=== PATIENT | female | born 2005 | race Caucasian/White ===

== ENCOUNTER 2024-12-01 14:38 | Observation (INO) ==
--- NOTE | 2024-12-01 14:58 | Emergency Department Note ---
Impression & Plan Elevated d-dimer, Intractable back pain ED Provider Note CHIEF COMPLAINT: Flank pain, abdominal pain HISTORY OF PRESENTING ILLNESS: The patient is a pleasant, 19-year-old female who arrives to the emergency department with her mother for evaluation of severe right flank pain, with radiation into the right abdomen. Patient reports she had an ultrasound done previously, which showed a possible cyst, which was believed to be the cause. The patient states she was also diagnosed with a UTI, and prescribed antibiotics. The patient was referred to urology, for UTI, who reported the patient needed to have CT imaging performed, as they believe the patient had a kidney stone. Patient states that the urine sample that was provided while in the emergency department, was contaminated, and the antibiotic was changed. The patient was prescribed Bactrim by urology, however did not pickling operator the prescription for Bactrim. The patient states the pain is severe in the right flank, just lateral to the lower thoracic spine. She states [id number] medications have not helped. REVIEW OF SYSTEMS: See HPI for pertinent positives and pertinent negatives. ALLERGIES: See below MEDICATIONS: See below PAST MEDICAL HISTORY: See below PHYSICAL EXAM: VITALS: Vitals are noted on the nurse's note and reviewed by myself. Vital signs stable. GENERAL: 19-year-old female, in no acute distress, nondiaphoretic, well- developed well-nourished. SKIN: The skin was without rashes, erythema, edema, or bruising. HEAD: Normocephalic atraumatic. HEART: Regular rate and rhythm without murmurs gallops or rubs. LUNGS: Clear to auscultation bilaterally without wheezes, rales or rhonchi. No retractions or accessory muscle use. ABDOMEN: Positive bowel sounds x 4. Positive right CVA TTP. Right lower quadrant tenderness to palpation, no rebound tenderness or guarding. MUSCULOSKELETAL: No muscle atrophy, erythema, or edema noted. Normal gait. Strength 5/5 throughout. NEURO: Patient was alert and oriented to person place and time. No focal neurological deficits. DIFFERENTIAL DIAGNOSIS: Appendicitis, ovarian cyst, ovarian torsion, ectopic , TOA, PID, infections, diverticulitis, UTI, obstruction, mesenteric ischemia, aortic pathology, inflammatory bowel disease, renal colic, PUD, pancreatitis, biliary pathology, hernia, volvulus, constipation, as well as other pathologies. ED COURSE AND MEDICAL DECISION MAKING: HISTORY FROM INDEPENDENT HISTORIAN: Mother at bedside serving as secondary historian. MEDICATIONS GIVEN: 1 L NSS bolus, 1000 mg IV Tylenol, 15 mg IV Toradol x 2, 10 mg IV dexamethasone. INTERPRETATION OF LABS: I interpreted the labs with full lab results as below in the lab section of this note. Pertinent lab results discussed in the MDM section below. INTERPRETATION OF IMAGING: Imaging studies were interpreted by myself and read by radiology as per the imaging section of this note. MDM SUMMARY: The patient is a pleasant, 19-year-old female who arrives to the emergency department for evaluation of the above-stated complaint. Saline lock was established, lab work was obtained. CBC shows no leukocytosis, with a stable anemia. CMP shows no concerning findings. hCG qualitative negative. Urinalysis shows 1+ leukocyte esterase, negative WBCs, 3-[address] imaging of the abdomen and pelvis with IV contrast shows no sign of appendicitis, or nephrolithiasis. There is mild periportal edema within the liver, nonspecific likely due to overhydration with IV fluids, or less likely hepatitis. Patient has mild hepatomegaly, likely due to previously stated causes. There is a small left renal cyst, the patient does have slight constipation. There is also a minimal amount of free pelvic fluid, which is likely physiologic. I spoke with the patient regarding the findings. Pain control was provided, as noted above, which was unsuccessful. There is possible concern for pulmonary embolism, due to patient's use of oral contraceptives, and the location of the patient's pain. D-dimer was obtained, which was positive. CT PE study was obtained which shows no evidence of PE, and no other concerning findings. The patient's cause of symptoms are at this point unclear, and require further evaluation. I spoke with the hospitalist, regarding inability to control the patient's pain with IV pain medications, and the need for further workup to determine the cause of the patient's symptoms. Dr. Lindsay Sanchez, from the [facility] hospitalist group agreed to evaluate and accept the patient for admission. Please refer to her documentation for further patient workup and care. DIAGNOSIS: Intractable back pain, elevated D-dimer The chart was completed utilizing [employer] voice recognition software. Grammatical errors, random word insertions, pronoun errors, and incomplete sentences are an occasional consequence of this system due to software limitations, ambient noise, and hardware issues. Any formal questions or concerns about the content, text, or information contained within the body of this dictation should be directly addressed to the provider for clarification. Past Med/Surg History Problem List (Updated 12/06/24 @ 17:32 by BRISEIDA Chavez) Abnormal uterine bleeding (AUB) Elevated d-dimer (Acute) Intractable back pain (Acute) Right flank pain Urinary tract infection (Acute) Family History Mother Kidney stone Social History Smoking Status: Never smoker Second Hand Exposure: No; Do You Dip or Chew Tobacco: No; Hx Alcohol Use: No Hx Substance Use: No Preferred Language: Irish Communication Ability: Effective Bow Maker Gift Wrapping Required: No Beliefs That Will Affect Care: None Current Living Situation: Other Current Living Situation Comment: apartment with college roommates Feels Safe at Home: Yes Assistive Devices: None Allergies Allergies Allergy/AdvReac Type Severity Reaction Status Date / Time No Known Allergies Allergy Verified 11/30/24 10:40 Home Meds Home Medications Medication Instructions Recorded Confirmed fluoxetine 10 mg capsule (Prozac) 10 mg PO DAILY 11/30/24 12/01/24 fluoxetine 20 mg capsule (Prozac) 20 mg PO DAILY 11/30/24 12/01/24 levonorgestrel 0.15 mg-ethinyl See Rx Instructions PO .COMPLEX 11/30/24 12/01/24 estradiol 30 mcg tablets,3 mos pack(91) Previous Rx's Medication Instructions Recorded cyclobenzaprine 5 mg tablet 5 mg PO TID PRN muscle spasm #30 12/03/24 tabs Results & Data (ED) Vital Signs Vital Signs - 24 hr 12/01/24 14:52 12/01/24 15:20 12/01/24 17:00 Temperature 36.8 C Temperature Source Temporal Artery Scan Pulse Rate 76 Pulse Rate [Finger] 68 87 Respiratory Rate 18 16 16 Respiratory Effort / Characteristics Non-Labored Spontaneous Non-Labored Spontaneous Non-Labored Spontaneous Respiratory Depth Normal Normal Normal Respiratory Pattern Regular Regular Blood Pressure 129/82 Blood Pressure [Right Arm] 114/85 117/72 Blood Pressure Mean 97 Blood Pressure Mean [Right Arm] 94 87 Blood Pressure Position Sitting Blood Pressure Position [Right Arm] Sitting Semi-fowlers Pulse Oximetry 98 99 99 Oxygen Delivery Method Room Air Room Air Room Air Sepsis Recent Fever Within 48 Hours No Sepsis New/Unexplained Change in Mental Status No Sepsis Action Taken by Nursing No Action Required Home Medications Current Medication List: was personally reviewed by me Laboratory Data Attestation: I reviewed the patient's lab results. 12/02/24 06:08 12/02/24 06:08 Lab Results 12/01/24 12/01/24 12/01/24 Range/Units 15:20 15:33 17:00 WBC 5.10 (4.8-10.8) K/ul RBC 3.75 L (4.20-5.40) M/uL Hgb 11.6 L (12.0-16.0) g/dl Hct 33.8 L (37.0-47.0) % MCV 90.1 (80.0-100.0) fL MCH 30.9 (25.0-34.0) pg MCHC 34.3 (32.0-36.0) g/dL RDW Std Deviation 39.7 (36.4-46.3) fL RDW Coeff of Efren 12.0 (11.5-14.5) % Plt Count 271 (130-400) K/uL MPV 10.1 (9.4-12.4) fL Immature Gran % (Auto) 0.2 % Neut % (Auto) 44.7 % Lymph % (Auto) 42.9 % [place] % (Auto) 9.2 % Eos % (Auto) 2.2 % Baso % (Auto) 0.8 % Neut # (Auto) 2.28 (1.40-6.50) K/uL Lymph # (Auto) 2.19 (1.20-3.40) K/uL [place] # (Auto) 0.47 (0.11-0.59) K/uL Eos # (Auto) 0.11 (0.00-0.50) K/uL Baso # (Auto) 0.04 (0.00-0.20) K/uL Immature Gran # (Auto) 0.01 (0.01-0.20) K/uL D-Dimer Cancelled Sodium 138 (136-145) mmol/L Potassium 4.2 (3.5-5.1) mmol/L Chloride 107 (98-107) mmol/L Carbon Dioxide 26 (21-32) mmol/L Anion Gap 5 (3-11) BUN 12 (6-23) mg/dl Creatinine 0.61 (0.6-1.2) mg/dl Est Cr Clr Drug Dosing 109.4 ml/min eGFR 131.18 BUN/Creatinine Ratio 19.7 (10-20) Glucose 75 (70-99(Fasting)) mg/dl Calcium 9.3 (8.6-10.3) mg/dl Total Bilirubin 0.2 (0.2-1.0) mg/dl AST 18 (13-39) U/L ALT 10 (7-52) U/L Alkaline Phosphatase 40 (34-104) U/L Total Protein 7.1 (6.0-8.3) gm/dl Albumin 4.2 (3.4-5.0) gm/dl Globulin 2.9 (2.5-4.0) gm/dl Albumin/Globulin Ratio 1.4 (0.9-2) HCG, Qual Negative (Negative) Urine Color Yellow Urine Appearance Clear (Clear) Urine pH 6.5 (4.5-7.5) Ur Specific [place] 1.022 (1.000-1.030) Urine Protein Negative (Negative) Urine Glucose (UA) Negative (Negative) Urine Ketones Negative (Negative) Urine Blood 2+ H (Negative) Urine Nitrite Negative (Negative) Urine Bilirubin Negative (Negative) Urine Urobilinogen Negative (Negative) Ur Leukocyte Esterase 1+ H (Negative) Urine WBC (Auto) 0-5 (0-5) /hpf Urine RBC (Auto) 3-5 H (0-2) /hpf U Hyaline Cast (Auto) 0-2 (0-2) /lpf U Epithel Cells (Auto) 3-5 H (0-2) /hpf Urine Bacteria (Auto) None Seen (None Seen) Urine Comment EBV Capsid Ag IgG Ab Positive EBV Caps Ag IgG Sig Str 37.7 (< 18.0) U/mL EBV Capsid Ag IgM Ab Negative EBV Caps Ag IgM Sig Str < 10.0 (< 36.0) U/mL EBV Nuclear Antigen Ab Negative EBV Nucl Ag IgG Sig Str 6.3 (< 18.0) U/mL EBV Interpretation See Comment 12/01/24 Range/Units 17:49 WBC (4.8-10.8) K/ul RBC (4.20-5.40) M/uL Hgb (12.0-16.0) g/dl Hct (37.0-47.0) % MCV (80.0-100.0) fL MCH (25.0-34.0) pg MCHC (32.0-36.0) g/dL RDW Std Deviation (36.4-46.3) fL RDW Coeff of Efren (11.5-14.5) % Plt Count (130-400) K/uL MPV (9.4-12.4) fL Immature Gran % (Auto) % Neut % (Auto) % Lymph % (Auto) % [place] % (Auto) % Eos % (Auto) % Baso % (Auto) % Neut # (Auto) (1.40-6.50) K/uL Lymph # (Auto) (1.20-3.40) K/uL [place] # (Auto) (0.11-0.59) K/uL Eos # (Auto) (0.00-0.50) K/uL Baso # (Auto) (0.00-0.20) K/uL Immature Gran # (Auto) (0.01-0.20) K/uL D-Dimer 1150 H* Sodium (136-145) mmol/L Potassium (3.5-5.1) mmol/L Chloride (98-107) mmol/L Carbon Dioxide (21-32) mmol/L Anion Gap (3-11) BUN (6-23) mg/dl Creatinine (0.6-1.2) mg/dl Est Cr Clr Drug Dosing ml/min eGFR BUN/Creatinine Ratio (10-20) Glucose (70-99(Fasting)) mg/dl Calcium (8.6-10.3) mg/dl Total Bilirubin (0.2-1.0) mg/dl AST (13-39) U/L ALT (7-52) U/L Alkaline Phosphatase (34-104) U/L Total Protein (6.0-8.3) gm/dl Albumin (3.4-5.0) gm/dl Globulin (2.5-4.0) gm/dl Albumin/Globulin Ratio (0.9-2) HCG, Qual (Negative) Urine Color Urine Appearance (Clear) Urine pH (4.5-7.5) Ur Specific [place] (1.000-1.030) Urine Protein (Negative) Urine Glucose (UA) (Negative) Urine Ketones (Negative) Urine Blood (Negative) Urine Nitrite (Negative) Urine Bilirubin (Negative) Urine Urobilinogen (Negative) Ur Leukocyte Esterase (Negative) Urine WBC (Auto) (0-5) /hpf Urine RBC (Auto) (0-2) /hpf U Hyaline Cast (Auto) (0-2) /lpf U Epithel Cells (Auto) (0-2) /hpf Urine Bacteria (Auto) (None Seen) Urine Comment EBV Capsid Ag IgG Ab EBV Caps Ag IgG Sig Str (< 18.0) U/mL EBV Capsid Ag IgM Ab EBV Caps Ag IgM Sig Str (< 36.0) U/mL EBV Nuclear Antigen Ab EBV Nucl Ag IgG Sig Str (< 18.0) U/mL EBV Interpretation Administered Medications Discontinued Medications Acetaminophen (Acetaminophen 500 Mg Tab) 1,000 mg PO Q8H PRN PRN Reason: Pain & Pre PT Stop: 12/31/24 21:14 Last Admin: 12/02/24 22:47 Dose: 1,000 mg Documented By: ENEDELIA Dexamethasone (Dexamethasone Sod Inj 4 Mg/Ml Vial) 10 mg IV NOW STA Stop: 12/01/24 18:45 Last Admin: 12/01/24 19:05 Dose: 10 mg Documented By: RICHARD Diazepam (Diazepam 2 Mg Tablet) 2 mg PO HS PRN PRN Reason: muscle cramping Stop: 01/01/25 19:07 Last Admin: 12/02/24 20:50 Dose: 2 mg Documented By: ENEDELIA Fluoxetine HCl (Fluoxetine Hcl 10 Mg Cap) 10 mg PO DAILY MONTRELL Stop: 01/01/25 08:59 Last Admin: 12/03/24 08:22 Dose: 10 mg Documented By: Admin: 12/02/24 10:02 Dose: 10 mg Documented By: ANTONIO Fluoxetine HCl (Fluoxetine Hcl 20 Mg Cap) 20 mg PO DAILY MONTRELL Stop: 01/01/25 08:59 Last Admin: 12/03/24 08:22 Dose: 20 mg Documented By: Admin: 12/02/24 10:02 Dose: 20 mg Documented By: ANTONIO Sodium Chloride (Nss) 1,000 mls @ 999 mls/hr IV .Q1H1M ONE Stop: 12/01/24 15:59 Last Infusion: 12/01/24 16:03 Dose: Infused Documented By: dea Admin: 12/01/24 15:19 Dose: 999 mls/hr Documented By: dea Acetaminophen (Ofirmev) 1,000 mg in 100 mls @ 400 mls/hr IV NOW STA Stop: 12/01/24 16:26 Last Infusion: 12/01/24 16:52 Dose: Infused Documented By: dea Admin: 12/01/24 16:17 Dose: 400 mls/hr Documented By: HARISH Ceftriaxone Sodium (Rocephin) 2,000 mg in 50 mls @ 100 mls/hr IV Q24H MONTRELL Stop: 12/06/24 21:14 Last Infusion: 12/01/24 23:40 Dose: Infused Documented By: Admin: 12/01/24 23:07 Dose: 100 mls/hr Documented By: RADHA Ibuprofen (Ibuprofen 600 Mg Tab) 600 mg PO Q6H PRN PRN Reason: Pain & Pre PT Stop: 12/31/24 21:14 Last Admin: 12/02/24 17:48 Dose: 600 mg Documented By: Admin: 12/02/24 10:01 Dose: 600 mg Documented By: Admin: 12/02/24 03:48 Dose: 600 mg Documented By: RADHA Ioversol (Optiray 320 100ml) 90 ml IV ONCE ONE Stop: 12/01/24 16:04 Last Admin: 12/01/24 16:03 Dose: 90 ml Documented By: JAKE Ketorolac Tromethamine (Ketorolac Tromethamine 15 Mg/Ml Vial) 15 mg IV NOW ONE Stop: 12/01/24 16:13 Last Admin: 12/01/24 16:17 Dose: 15 mg Documented By: HARISH Ketorolac Tromethamine (Ketorolac Tromethamine 15 Mg/Ml Vial) 15 mg IV NOW ONE Stop: 12/01/24 18:45 Last Admin: 12/01/24 19:03 Dose: 15 mg Documented By: RICHARD Ketorolac Tromethamine (Ketorolac Tromethamine 15 Mg/Ml Vial) 15 mg IV Q6H PRN PRN Reason: Pain & Pre PT Stop: 12/06/24 21:14 Last Admin: 12/02/24 19:41 Dose: 15 mg Documented By: Admin: 12/02/24 12:43 Dose: 15 mg Documented By: Admin: 12/02/24 06:23 Dose: 15 mg Documented By: Admin: 12/01/24 23:06 Dose: 15 mg Documented By: RADHA Melatonin (Melatonin 3 Mg Tab) 3 mg PO HS PRN PRN Reason: Insomnia Stop: 12/31/24 22:24 Last Admin: 12/02/24 22:47 Dose: 3 mg Documented By: ENEDELIA Imaging Data Attestation: I personally reviewed and interpreted this imaging study as follows: Radiologist's Impression: Abdomen/Pelvis CT 12/01/24 14:59 Clinical History: Right-sided pain Technique: Axial computed tomography images were obtained of the abdomen and pelvis after the administration of intravenous contrast. No prior CT is available for comparison. Findings: The liver appears enlarged measuring 19.5 cm craniocaudal. There is no sign of cirrhosis or significant fatty infiltration. No liver mass lesion is seen. There is periportal edema within the liver. The portal vein is patent. The gallbladder appears unremarkable. No bile duct dilatation is noted. The spleen is of normal size. No focal splenic lesion is evident. The pancreas appears normal with no sign of acute or chronic pancreatitis and no mass lesion noted. The pancreatic duct is of normal caliber. The adrenal glands appear unremarkable. No definite renal or proximal ureteral calculi are seen on this contrast-enhanced study. There is no hydronephrosis or perinephric stranding. No renal mass lesion is identified. There is a 1 cm left renal cyst The aorta is of normal caliber. No abdominal adenopathy is seen. There is prominence of the gastric wall that is slightly due to the decompressed state. There is no sign of small bowel obstruction. There is constipation. There is no sign of appendicitis. No free intraperitoneal air is identified. There is a minimal amount of free pelvic fluid No distal ureteral or bladder calculi are seen. The bladder is decompressed. The iliac arteries are of normal caliber. No pelvic adenopathy is noted. The lungs bases appear clear. No fracture is identified. No focal osseous lesion is seen Impression: 1. No sign of appendicitis or nephrolithiasis 2. Mild periportal edema within the liver. This is nonspecific in nature but could be due to hepatitis or overhydration 3. Mild hepatomegaly 4. Small left renal cyst 5. Constipation 6. Minimal amount of free pelvic fluid, which may be physiologic ACT 112: Positive. There are findings on this exam that require communication between the performing entity and the patient following Patient Test Result Information Act ([place] ACT 112) guidelines. Electronically signed by Zen Varela 12-01-2024 4:24 PM Discharge Plan Visit Data Chief Complaint: Kidney Stone Stated Complaint: POSSIBLE KIDNEY STONE ED Provider: Gerry Brown ED Midlevel Provider: Johana Pyle Discharge Problem: Elevated d-dimer, Intractable back pain Patient Disposition: Admitted As Inpatient Condition: Fair Discharge Instructions Interventions: ED Discharge Assessment Last Done: 12/01/24 21:40
[2024-12-01] MEDS: SODIUM CHLORIDE 0.9% 1,000 ML IV ONE (15:19)
[2024-12-01 15:34] LABS: Hematocrit (blood only) 33.8 % (37.0-47.0); Hemoglobin 11.6 g/dl (12.0-16.0); Immature Granulocytes # (auto) 0.01 K/uL (0.01-0.20); Immature Granulocytes % (auto) 0.2 %; Mean Corpuscular Hemoglobin 30.9 pg (25.0-34.0); Mean Corpuscular Volume 90.1 fL (80.0-100.0); Platelet Count 271 K/uL (130-400); RDW Standard Deviation 39.7 fL (36.4-46.3); Red Blood Count 3.75 M/uL (4.20-5.40); White Blood Count 5.10 K/ul (4.8-10.8)
[2024-12-01 15:52] LABS: Alanine Aminotransferase 10.0 U/L (7-52); Albumin Globulin Ratio 1.4 (0.9-2); Alkaline Phosphatase 40.0 U/L (34-104); Anion Gap 5.0 (3-11); Bilirubin,Total 0.2 mg/dl (0.2-1.0); Blood Urea Nitrogen 12.0 mg/dl (6-23); Calcium 9.3 mg/dl (8.6-10.3); Carbon Dioxide 26.0 mmol/L (21-32); Chloride 107.0 mmol/L (98-107); Creatinine Clr Calc Pharmacy 109.4 ml/min; Globulin 2.9 gm/dl (2.5-4.0); Glucose 75.0 mg/dl (70-99(Fasting)); Potassium 4.2 mmol/L (3.5-5.1); Sodium 138.0 mmol/L (136-145); Total Protein 7.1 gm/dl (6.0-8.3)
[2024-12-01 15:53] LABS: Pregnancy Test, Serum Negative (Negative)
[2024-12-01 15:56] LABS: Appearance Urine Clear (Clear); Bacteria Urine Automated None Seen (None Seen); Cast Urine Automated 0-2 /lpf (0-2); Glucose Urine UA Negative (Negative); WBC Urine Automated 0-5 /hpf (0-5)
[2024-12-01] MEDS: OPTIRAY 320 100ml IV ONE (16:03)
[2024-12-01] MEDS: KETOROLAC TROMETHAMINE 15 MG/ML VIAL IV ONE ×2 (16:17→19:03)
[2024-12-01] MEDS: ACETAMINOPHEN 1,000 MG/100 ML VIAL IV STA (16:17)
--- NOTE | 2024-12-01 16:25 | CT Scan Report ---
Clinical History: Right-sided pain Technique: Axial computed tomography images were obtained of the abdomen and pelvis after the administration of intravenous contrast. No prior CT is available for comparison. Findings: The liver appears enlarged measuring 19.5 cm craniocaudal. There is no sign of cirrhosis or significant fatty infiltration. No liver mass lesion is seen. There is periportal edema within the liver. The portal vein is patent. The gallbladder appears unremarkable. No bile duct dilatation is noted. The spleen is of normal size. No focal splenic lesion is evident. The pancreas appears normal with no sign of acute or chronic pancreatitis and no mass lesion noted. The pancreatic duct is of normal caliber. The adrenal glands appear unremarkable. No definite renal or proximal ureteral calculi are seen on this contrast-enhanced study. There is no hydronephrosis or perinephric stranding. No renal mass lesion is identified. There is a 1 cm left renal cyst The aorta is of normal caliber. No abdominal adenopathy is seen. There is prominence of the gastric wall that is slightly due to the decompressed state. There is no sign of small bowel obstruction. There is constipation. There is no sign of appendicitis. No free intraperitoneal air is identified. There is a minimal amount of free pelvic fluid No distal ureteral or bladder calculi are seen. The bladder is decompressed. The iliac arteries are of normal caliber. No pelvic adenopathy is noted. The lungs bases appear clear. No fracture is identified. No focal osseous lesion is seen Impression: 1. No sign of appendicitis or nephrolithiasis 2. Mild periportal edema within the liver. This is nonspecific in nature but could be due to hepatitis or overhydration 3. Mild hepatomegaly 4. Small left renal cyst 5. Constipation 6. Minimal amount of free pelvic fluid, which may be physiologic ACT 112: Positive. There are findings on this exam that require communication between the performing entity and the patient following Patient Test Result Information Act ([place] ACT 112) guidelines. Electronically signed by Zen Varela 12-01-2024 4:24 PM
[2024-12-01] MEDS: DEXAMETHASONE SOD INJ 4 MG/ML VIAL IV STA (19:05)
--- NOTE | 2024-12-01 19:13 | CT Scan Report ---
CT pulmonary angiogram with IV contrast History: Chest pain COMPARISON: None TECHNIQUE: CT angiography of the chest was performed without IV contrast followed by IV contrast, including 3D post processing CTA image reconstruction. Dose reduction techniques were achieved by using automatic exposure control and/or adjustment of mA and/or kV according to patient size and/or use of iterative reconstruction technique. FINDINGS: Diagnostic quality: Adequate There is no evidence for pulmonary embolism. The heart is not enlarged. There is no pericardial effusion. There are no abnormally enlarged hilar or mediastinal lymph nodes. The central tracheobronchial tree is clear. The lungs are clear. There is no pleural effusion. Limited visualized upper abdomen. No destructive osseous changes are seen. IMPRESSION: No evidence for pulmonary embolism. Electronically signed by Nahid Silveira 12-01-2024 7:13 PM
--- NOTE | 2024-12-01 21:04 | History & Physical Report ---
Date of Service December 01, 2024 Assessment & Plan (1) Intractable back pain: (2) Urinary tract infection: (3) Elevated d-dimer: Plan 19-year-old female PMHx chronic sinusitis s/p surgical intervention and recently diagnosed UTI presenting for ongoing and worsening back pain starting 6 days [employer]. Her clinical picture is not overall clear. She had a sudden onset of the back pain when walking, which was mainly localized above the R flank, then it has since radiated to the L side. Evaluation does reveal persistent UTI in which she will be given IV abx for, but imaging does not yet reveal alternative etiology aside from MSK. Ddimer is elevated to 1150. No PE or DVT identified. #Intractable back pain Ongoing x ~ 6 days, without known injury or trauma. No neurological symptoms. Initially thought to be 2/2 UTI with possible pyelonephritis. Was started on Cefdinir for such, adjusted to Bactrim by urology. Worsening pain in mid-back, with midline point tenderness ~ T10. Also with paraspinal tenderness. Concerns for alternative etiology from renal, also in setting of elevated D-dimer. Opted for further thoracic/lumbar spine imaging, both without acute findings. Pursued PE workup given elevated D-dimer, location of pain, and episode of SOB but this too was negative. At present, unclear etiology of back pain aside from MSK. Admission for pain control and further evaluation of worsening back pain. - CBC without leukocytosis or leukopenia, H/H 11.6/33.8; CMP unremarkable - CBC am - UA indicative of infection; pending cx - EBV + CMV pending given mild periportal edema of liver (LFTs WNL) - CTAP no appendicitis or nephrolithiasis, mild periportal edema within the liver (hepatitis vs overhydration), mild hepatomegaly, small L renal cyst, constipation, minimal free pelvic fluid - Chest CTA negative for PE - Thoracic + Lumbar spine CT without evidence of acute spine pathology - Zofran prn N/V - Acetaminophen + IBU prn pain, ketorolac prn severe pain - Encourage prn bowel regimen - Consider PT/OT outpatient #UTI Known UTI, was initially treated with Cefdinir then switched to Bactrim by urology. Noticing blood in urine. No history of pseudomonas. Of note, also with breakthrough menstrual bleeding. - CBC without leukocytosis; CMP unremarkable - UA indicative of infection; pending cx - Preg negative - CTAP without evidence of pyelonephritis or nephrolithiasis - Ceftriaxone 2g IV #Elevated D-dimer Brief episode of SOB the day of arrival, self limiting and no evidence of hypoxia. On OCP. - Ddimer 1150 - Chest CTA negative for PE - Venous Dopplers BLE negative for DVT - Consider hematology consult Dispo: Obs, med/sx VTE Prophylaxis: Deferred - encourage ambulation -- if unable, should consider chemical prophylaxis This document was dictated utilizing TEEspy. Please excuse any grammatical errors that may be secondary to use of this software. Admission and Anticipated Discharge Date Admission Date: 12/01/2024 History of Present Illness Chief Complaint: Back pain Primary Care Provider: 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 She immediately felt nauseous and "spaced out". Her mother is in the room and helps to provide history. States that her daughter called her almost immediately via [employer] and that she knew that the patient had been in significant pain because she appeared pale. The patient states that she just felt disoriented when this occurred. She did go to her class but the pain continued. She was seen in the ED on 11/25/2024 for this pain, ultimately being diagnosed with a UTI and sent home on oral cefdinir. Her pelvic, renal, and transvaginal ultrasound at that time only revealed mild free fluid in the pelvis that was nonspecific. She followed up with urology who received a new urine sample and adjusted her antibiotics to Bactrim, recommending CT of the abdomen and pelvis. She picked up the Bactrim the day of arrival but has been unable to yet start this antibiotic. Given the ongoing and worsening pain, as well as being unable to have an outpatient CT scheduled for the next few weeks, the patient came to the ED for evaluation. She states that the pain, at its worst, is at present and is rated a 8-9/10 on the pain scale. It is a sharp and achy pain. Initially, the pain was on the R side, below the base of the scapula with some radiation to her flank. However, on the day of arrival, the pain seemed to have radiated to the center of her back, and more localized to the L side. She still has R sided discomfort, but it is more so on the L side now. She states she has also had abdominal cramping that feels like menstrual cramps. 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 She notes that her discomfort is worse with walking. She denies injury, falls, or any factors that may have triggered worsening pain. She has been utilizing IBU and acetaminophen around the clock with minimal pain relief. Also using heating pad. Reports that she has noticed she is more aware of odors, and it has caused her to gag. Some constipation at baseline. Denies vaginal odor, discharge, or pain with intercourse. At present, her pain is just below her scapula, in the center of her back with more emphasis on the L side. She does notice blood in her urine. Did have a limited episode of SOB the day of arrival. Denies CP, palpitations, vomiting/diarrhea, F/C, URI symptoms, numbness/tingling, weakness, syncope, or falls. ED evaluation reveals CBC without leukocytosis or leukopenia, H/H 11.6/33.8; Ddimer 1150; CMP unremarkable; negative; UA still indicative of infection; CTAP no appendicitis or nephrolithiasis, mild periportal edema within the liver (hepatitis vs overhydration), mild hepatomegaly, small L renal cyst, constipation, minimal free pelvic fluid; chest CTA no evidence for PE.; Provided with 1L NSS, Ketorolac 15mg IV x 2, Dexamethasone 10mg IV, and Acetaminophen 1g IV in ED. Please see Dr. Sanchez's attestation for adjustments/additions to treatment plan. Allergies Allergy/AdvReac Type Severity Reaction Status Date / Time No Known Allergies Allergy Verified 11/30/24 10:40 Home Medications Medication Instructions Recorded Confirmed Type fluoxetine 10 mg capsule (Prozac) 10 mg PO DAILY 11/30/24 12/01/24 History fluoxetine 20 mg capsule (Prozac) 20 mg PO DAILY 11/30/24 12/01/24 History levonorgestrel 0.15 mg-ethinyl See Rx Instructions PO .COMPLEX 11/30/24 12/01/24 History estradiol 30 mcg tablets,3 mos pack(91) sulfamethoxazole 800 1 tab PO BID 7 days #14 tabs 11/30/24 12/01/24 Rx mg-trimethoprim 160 mg tablet (Bactrim DS) Past Med/Surg History Problem List (Updated 12/01/24 @ 23:15 by Rachele Riley PA-C) Elevated d-dimer Intractable back pain Right flank pain Urinary tract infection (Acute) Family History Mother Kidney stone Social History Smoking Status: Never smoker Second Hand Exposure: No; Do You Dip or Chew Tobacco: No; Tobacco Cessation Education Requested by Patient: No Hx Alcohol Use: No Hx Substance Use: No Preferred Language: Mosotho Communication Ability: Effective Academic Support Assistant Required: No Beliefs That Will Affect Care: None Current Living Situation: Other Current Living Situation Comment: apartment with college roommates Other Information That Helps Us Care for You: No Feels Safe at Home: Yes Safety Concerns: Feels Safe At This Time Assistive Devices: None Review of Systems Review of Systems: All systems reviewed & are unremarkable except as noted in Subjective Physical Exam Physical Exam: General: No acute distress, appears uncomfortable Skin: Warm and dry Head: Normocephalic, atraumatic Eyes: PERRL, conjunctivae clear, sclera non-icteric ENT: External ear and ear canal without swelling; nose atraumatic; good dentition, tongue normal appearance, pharynx normal Neck: Supple, no LAD Cardio: RRR, no M/G/R, S1 and S2 normal Resp: No respiratory distress, Lungs CTA in all lobes bilaterally, no wheezes, rales, or rhonchi Abdomen: Soft, symmetric, nontender; No masses or hepatosplenomegaly; Bowel sounds normoactive; mild CVA tenderness R side MSK: No deformities; pulses palpable and equal; no edema; paraspinal tenderness to palpation at thoracic area, with midline tenderness to palpation ~ T10; no step off deformity; no tenderness to palpation BLE (thighs/hips); no hip instability; no tenderness over pubic symphysis. Neuro: Awake, alert; Sensation intact bilaterally; CN grossly intact; no neurological deficits Psych: Appropriate mood and affect; good judgement and insight. Mother is present in room at time of visit. Results & Data Results & Data Vital Signs (Past 12 Hours) Vital Signs Temp Pulse Pulse Resp BP BP Pulse Ox 12/01/24 19:10 73 16 100/69 99 12/01/24 17:00 87 16 117/72 99 12/01/24 15:20 68 16 114/85 99 12/01/24 14:52 36.8 C 76 18 129/82 98 O2 Del Method 12/01/24 19:10 Room Air 12/01/24 17:00 Room Air 12/01/24 15:20 Room Air 12/01/24 14:52 Room Air Laboratory Results 12/01/24 12/01/24 12/01/24 17:49 17:00 15:33 WBC RBC Hgb Hct MCV MCH MCHC RDW Std Deviation RDW Coeff of Efren Plt Count MPV Immature Gran % (Auto) Neut % (Auto) Lymph % (Auto) [place] % (Auto) Eos % (Auto) Baso % (Auto) Neut # (Auto) Lymph # (Auto) [place] # (Auto) Eos # (Auto) Baso # (Auto) Immature Gran # (Auto) D-Dimer 1150 H* Cancelled Sodium Potassium Chloride Carbon Dioxide Anion Gap BUN Creatinine Est Cr Clr Drug Dosing eGFR BUN/Creatinine Ratio Glucose Calcium Total Bilirubin AST ALT Alkaline Phosphatase Total Protein Albumin Globulin Albumin/Globulin Ratio HCG, Qual Urine Color Yellow Urine Appearance Clear Urine pH 6.5 Ur Specific [place] 1.022 Urine Protein Negative Urine Glucose (UA) Negative Urine Ketones Negative Urine Blood 2+ H Urine Nitrite Negative Urine Bilirubin Negative Urine Urobilinogen Negative Ur Leukocyte Esterase 1+ H Urine WBC (Auto) 0-5 Urine RBC (Auto) 3-5 H U Hyaline Cast (Auto) 0-2 U Epithel Cells (Auto) 3-5 H Urine Bacteria (Auto) None Seen Urine Comment 12/01/24 15:20 WBC 5.10 RBC 3.75 L Hgb 11.6 L Hct 33.8 L MCV 90.1 MCH 30.9 MCHC 34.3 RDW Std Deviation 39.7 RDW Coeff of Efren 12.0 Plt Count 271 MPV 10.1 Immature Gran % (Auto) 0.2 Neut % (Auto) 44.7 Lymph % (Auto) 42.9 [place] % (Auto) 9.2 Eos % (Auto) 2.2 Baso % (Auto) 0.8 Neut # (Auto) 2.28 Lymph # (Auto) 2.19 [place] # (Auto) 0.47 Eos # (Auto) 0.11 Baso # (Auto) 0.04 Immature Gran # (Auto) 0.01 D-Dimer Sodium 138 Potassium 4.2 Chloride 107 Carbon Dioxide 26 Anion Gap 5 BUN 12 Creatinine 0.61 Est Cr Clr Drug Dosing 109.4 eGFR 131.18 BUN/Creatinine Ratio 19.7 Glucose 75 Calcium 9.3 Total Bilirubin 0.2 AST 18 ALT 10 Alkaline Phosphatase 40 Total Protein 7.1 Albumin 4.2 Globulin 2.9 Albumin/Globulin Ratio 1.4 HCG, Qual Negative Urine Color Urine Appearance Urine pH Ur Specific [place] Urine Protein Urine Glucose (UA) Urine Ketones Urine Blood Urine Nitrite Urine Bilirubin Urine Urobilinogen Ur Leukocyte Esterase Urine WBC (Auto) Urine RBC (Auto) U Hyaline Cast (Auto) U Epithel Cells (Auto) Urine Bacteria (Auto) Urine Comment Diagnostic Findings Abdomen/Pelvis CT 12/01/24 14:59 Clinical History: Right-sided pain Technique: Axial computed tomography images were obtained of the abdomen and pelvis after the administration of intravenous contrast. No prior CT is available for comparison. Findings: The liver appears enlarged measuring 19.5 cm craniocaudal. There is no sign of cirrhosis or significant fatty infiltration. No liver mass lesion is seen. There is periportal edema within the liver. The portal vein is patent. The gallbladder appears unremarkable. No bile duct dilatation is noted. The spleen is of normal size. No focal splenic lesion is evident. The pancreas appears normal with no sign of acute or chronic pancreatitis and no mass lesion noted. The pancreatic duct is of normal caliber. The adrenal glands appear unremarkable. No definite renal or proximal ureteral calculi are seen on this contrast-enhanced study. There is no hydronephrosis or perinephric stranding. No renal mass lesion is identified. There is a 1 cm left renal cyst The aorta is of normal caliber. No abdominal adenopathy is seen. There is prominence of the gastric wall that is slightly due to the decompressed state. There is no sign of small bowel obstruction. There is constipation. There is no sign of appendicitis. No free intraperitoneal air is identified. There is a minimal amount of free pelvic fluid No distal ureteral or bladder calculi are seen. The bladder is decompressed. The iliac arteries are of normal caliber. No pelvic adenopathy is noted. The lungs bases appear clear. No fracture is identified. No focal osseous lesion is seen Impression: 1. No sign of appendicitis or nephrolithiasis 2. Mild periportal edema within the liver. This is nonspecific in nature but could be due to hepatitis or overhydration 3. Mild hepatomegaly 4. Small left renal cyst 5. Constipation 6. Minimal amount of free pelvic fluid, which may be physiologic ACT 112: Positive. There are findings on this exam that require communication between the performing entity and the patient following Patient Test Result Information Act ([place] ACT 112) guidelines. Electronically signed by Zen Varela 12-01-2024 4:24 PM Chest CTA 12/01/24 18:41 CT pulmonary angiogram with IV contrast History: Chest pain COMPARISON: None TECHNIQUE: CT angiography of the chest was performed without IV contrast followed by IV contrast, including 3D post processing CTA image reconstruction. Dose reduction techniques were achieved by using automatic exposure control and/or adjustment of mA and/or kV according to patient size and/or use of iterative reconstruction technique. FINDINGS: Diagnostic quality: Adequate There is no evidence for pulmonary embolism. The heart is not enlarged. There is no pericardial effusion. There are no abnormally enlarged hilar or mediastinal lymph nodes. The central tracheobronchial tree is clear. The lungs are clear. There is no pleural effusion. Limited visualized upper abdomen. No destructive osseous changes are seen. IMPRESSION: No evidence for pulmonary embolism. Electronically signed by Nahid Silveira 12-01-2024 7:13 PM Medications Administered 1L NSS Ketorolac 15mg IV x 2 Dexamethasone 10mg IV Acetaminophen 1g IV Code Status & VTE Plan Code Status Full VTE Prophylaxis Plan VTE Prophylaxis will be ordered: Yes Supervising Physician Co-Signing Physician Notes Patient seen and examined, chart reviewed, case discussed with LIANE Riley and I agree with the assessment and plan as above PG Care Time/CCT Total # of Minutes Spent Total Time Spent with Patient: Total time spent is greater than 50% in coordination of care (as documented) at patient's floor/unit and/or counseling patient: Coding Level of Care Code 45548 INT INP/OBS CARE 3/75MIN Diagnoses Intractable back pain M54.9 Urinary tract infection N39.0; R31.9 Hematuria presence: with hematuria Urinary tract infection type: site unspecified Elevated d-dimer R79.89 (2) Urinary tract infection Hematuria presence: with hematuria Urinary tract infection type: site unspecified Qualified Code(s): N39.0 - Urinary tract infection, site not specified; R31.9 - Hematuria, unspecified
[2024-12-01 22:03] LABS: EBV Nuclear Antigen IgG Ab Negative; EBV Nuclear Antigen IgG Quant 6.3 U/mL (< 18.0)
[2024-12-01 22:04] LABS: EBV IgG Quant 37.7 U/mL (< 18.0); EBV IgM Quant < 10.0 U/mL (< 36.0)
[2024-12-01] MEDS ORDERED: MAGNESIUM HYDROXIDE SUSP 30 ML UDC PO PRN (22:25)
[2024-12-01] MEDS ORDERED: ONDANSETRON INJ 2 MG/ML 2 ML VIAL IV PRN (22:25)
[2024-12-01] MEDS ORDERED: POLYETHYLENE (MIRALAX) 17 GM PACK PO PRN (22:25)
--- NOTE | 2024-12-01 22:52 | CT Scan Report ---
Exam(s): CT T SPINE IV Amt: 115 ml optiray 320 EXAM: CT Thoracic Spine With Intravenous Contrast CLINICAL HISTORY: Reason for exam: Point tenderness palp. TECHNIQUE: Axial computed tomography images of the thoracic spine with intravenous contrast. CTDI is 11.87 mGy and DLP is 5.94 mGy-cm. Automated exposure control was utilized for the study. A dose lowering technique was utilized adhering to the principles of ALARA. CONTRAST: Patient received 115 ml optiray 320 of IV contrast COMPARISON: No relevant prior studies available. FINDINGS: Vertebrae: There is a mild dextroscoliosis and thoracic kyphosis. No acute fracture. Discs/spinal canal/neural foramina: No acute findings. No spinal canal stenosis. Soft tissues: Unremarkable. IMPRESSION: No evidence of acute thoracic spine pathology. Electronically signed by: Hailee Mcfarlane MD 12/01/24 22:51 PM
--- NOTE | 2024-12-01 22:52 | Ultrasound Report ---
Exam(s): US VENOUS BILATERAL LOWER EXTREMITIES EXAM: US Duplex Bilateral Lower Extremities Veins CLINICAL HISTORY: Reason for exam: ddimer. TECHNIQUE: Real-time duplex ultrasound scan of the bilateral lower extremity veins integrating B-mode two-dimensional vascular structure, Doppler spectral analysis, color flow Doppler imaging and compression. COMPARISON: No relevant prior studies available. FINDINGS: Right deep veins: Unremarkable. The visualized deep veins of the right lower extremity are compressible with color flow. No visualized thrombus. Right superficial veins: Unremarkable. Left deep veins: Unremarkable. The visualized deep veins of the left lower extremity are compressible with color flow. No visualized thrombus. Left superficial veins: Unremarkable. No visualized thrombus in the GSV. Soft tissues: No acute findings. IMPRESSION: No DVT within the bilateral lower extremities. Electronically signed by: Chacho Weinstein MD 12/01/24 22:51 PM
--- NOTE | 2024-12-01 23:05 | CT Scan Report ---
Exam(s): CT L SPINE With Contrast IV Amt: 90 ml optiray 320 EXAM: CT Lumbar Spine With Intravenous Contrast CLINICAL HISTORY: Reason for exam: Point tenderness palp. TECHNIQUE: Axial computed tomography images of the lumbar spine with intravenous contrast. CTDI is 7.97 mGy and DLP is 283.36 mGy-cm. Automated exposure control was utilized for the study. A dose lowering technique was utilized adhering to the principles of ALARA. CONTRAST: Patient received 90 ml optiray 320 of IV contrast COMPARISON: No relevant prior studies available. FINDINGS: Vertebrae: Mild levoscoliosis with a normal lumbar lordosis.. No acute fracture. Discs/spinal canal/neural foramina: No acute findings. No spinal canal stenosis. Soft tissues: Unremarkable. IMPRESSION: No evidence of acute lumbar spine pathology. Electronically signed by: Hailee Mcfarlane MD 12/01/24 23:04 PM
[2024-12-01] MEDS: KETOROLAC TROMETHAMINE 15 MG/ML VIAL IV PRN (23:06)
[2024-12-01] MEDS: cefTRIAXone SODIUM 2,000 MG/50 ML BAG IV SCH (23:07)
[2024-12-02] MEDS: IBUPROFEN 600 MG TAB PO PRN (03:48)
[2024-12-02 06:54] LABS: Hematocrit (blood only) 34.6 % (37.0-47.0); Hemoglobin 11.7 g/dl (12.0-16.0); Mean Corpuscular Hemoglobin 30.2 pg (25.0-34.0); Mean Corpuscular Volume 89.2 fL (80.0-100.0); Platelet Count 282 K/uL (130-400); RDW Standard Deviation 37.8 fL (36.4-46.3); Red Blood Count 3.88 M/uL (4.20-5.40); White Blood Count 6.87 K/ul (4.8-10.8)
[2024-12-02 07:30] LABS: Anion Gap 7.0 (3-11); Blood Urea Nitrogen 13.0 mg/dl (6-23); Calcium 9.1 mg/dl (8.6-10.3); Carbon Dioxide 22.0 mmol/L (21-32); Chloride 106.0 mmol/L (98-107); Creatinine Clr Calc Pharmacy 131.3 ml/min; Glucose 124.0 mg/dl (70-99(Fasting)); Potassium 3.9 mmol/L (3.5-5.1); Sodium 135.0 mmol/L (136-145)
--- NOTE | 2024-12-02 14:29 | Hospitalist Progress Note ---
Date of Service December 02, 2024 Assessment & Plan (1) Intractable back pain: (2) Urinary tract infection: (3) Elevated d-dimer: Plan 19-year-old female PMHx chronic sinusitis s/p surgical intervention and recently diagnosed UTI presenting for ongoing and worsening back pain starting 6 days [employer]. #Intractable back pain Appears to be musculoskeletal on exam with thoracic back spasm, will trial diazepam 2mg PO HS as needed tonight to see if we can break the cycle Although CT done with IV contrast there is no contrast in the ureters, no evidence for kidney stones and her history really doesn't fit this. #Abnormal menstrual periods I suspect this may be what is driving her back spasms after switching to three month cycles and having what appears to be a breakthrough period Will ask DERRICK BOAT RUNNER to see her for advice regarding what to do with her control at this time #UTI Ruled out - no good evidence for this with lactobacillus now on urine culture Antibiotics discontinued Dispo: Obs, med/sx VTE Prophylaxis: low risk, encourage ambulation Admission and Anticipated Discharge Date Admission Date: December 01, 2024 Subjective Ongoing thoracic back pain LMP last week of September 10-. Right after that started new control regimen but pills the same on September 13 went to having three month cycles for the first time. With her thoracic back pain she hasn't had a period but more than spotting. She made the switch due to periods lasting 8-9 days so was to much every month to have a period Physical Exam Constitutional: WD/WN, vitals as above Respiratory: normal respiratory effort, lungs clear to auscultation Cardiovascular: RRR, no murmur, no edema Gastrointestinal (Abdomen): normal bowel sounds, soft, nontender, no hepatosplenomegaly Musculoskeletal: Pain on palpation of tight right > left paraspinal muscles around ribs 10-12 Skin: no rashes, warm and dry Genitourinary: no CVA tenderness Results & Data Results & Data Vital Signs (Past 12 Hours) Vital Signs Temp Pulse Resp BP Pulse Ox O2 Del Method 12/02/24 07:31 37.0 C 70 16 95/60 L 97 Room Air PG Care Time/CCT Total # of Minutes Spent Total Time Spent with Patient: Total time spent is greater than 50% in coordination of care (as documented) at patient's floor/unit and/or counseling patient: Coding Level of Care Code 60666 SUB INP/OBS CARE MIN Diagnoses Intractable back pain M54.9 Urinary tract infection N39.0; R31.9 Hematuria presence: with hematuria Urinary tract infection type: site unspecified Elevated d-dimer R79.89 (2) Urinary tract infection Hematuria presence: with hematuria Urinary tract infection type: site unspecified Qualified Code(s): N39.0 - Urinary tract infection, site not specified; R31.9 - Hematuria, unspecified
[2024-12-02 15:29] VITALS: O2SAT 98
--- NOTE | 2024-12-02 22:14 | OB/GYN Consultation ---
Date of Consultation December 02, 2024 Assessment & Plan (1) Abnormal uterine bleeding (AUB): Plan Patient to take the control pill that she missed today. 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 Thank you and we will follow-up as needed. History of Present Illness Reason for Consultation: abdominal pain and back pain. vaginal bleeding. Requesting Physician: Dr. Sanchez Attending Physician: Сергей Monterroso MD History of Present Illness 19-year-old female G0, P0 on control pills with menarche at age 12 presents with acute onset of pain on Thursday was seen last week in the ER and discharged with a diagnosis of UTI however she has no symptoms of UTI she presented again with abdominal pain and back pain she recently started control pills on a 90-day cycle and she is currently on the third month with some spotting noted. She states that she has not gone through that many pads since being here in the hospital. No passage of clots. She did miss today's dose of control pill. Allergies Allergy/AdvReac Type Severity Reaction Status Date / Time No Known Allergies Allergy Verified 11/30/24 10:40 Home Medications Medication Instructions Recorded Confirmed Type fluoxetine 10 mg capsule (Prozac) 10 mg PO DAILY 11/30/24 12/01/24 History fluoxetine 20 mg capsule (Prozac) 20 mg PO DAILY 11/30/24 12/01/24 History levonorgestrel 0.15 mg-ethinyl See Rx Instructions PO .COMPLEX 11/30/24 12/01/24 History estradiol 30 mcg tablets,3 mos pack(91) sulfamethoxazole 800 1 tab PO BID 7 days #14 tabs 11/30/24 12/01/24 Rx mg-trimethoprim 160 mg tablet (Bactrim DS) Patient History Family History Mother Kidney stone Social History Smoking Status: Never smoker Second Hand Exposure: No; Do You Dip or Chew Tobacco: No; Tobacco Cessation Education Requested by Patient: No Hx Alcohol Use: No Hx Substance Use: No Preferred Language: Maori Communication Ability: Effective Sheet Writer Required: No Beliefs That Will Affect Care: None Current Living Situation: Other Current Living Situation Comment: apartment with college roommates Other Information That Helps Us Care for You: No Feels Safe at Home: Yes Safety Concerns: Feels Safe At This Time Assistive Devices: None Physical Exam Constitutional: WD/WN, vitals as above Eyes: PERRL, conjunctivae normal, anicteric sclerae Respiratory: normal respiratory effort Gastrointestinal (Abdomen): Inspection/Auscultation: abdomen normal to inspection no rebound or guarding Musculoskeletal: no cyanosis or clubbing, extremities motor strength 5/5 Skin: no rashes, warm and dry Neurologic: patellar DTR's 2+ bilat, sensation intact Psychiatric: A+Ox3, euthymic affect Results & Data Vital Signs (Past 12 Hours) Vital Signs Temp Pulse Resp BP Pulse Ox O2 Del Method 12/02/24 15:28 36.9 C 91 H 16 138/79 98 Room Air Laboratory Results 12/01/24 12/01/24 12/01/24 15:20 15:33 17:00 WBC 5.10 RBC 3.75 L Hgb 11.6 L Hct 33.8 L MCV 90.1 MCH 30.9 MCHC 34.3 RDW Std Deviation 39.7 RDW Coeff of Efren 12.0 Plt Count 271 MPV 10.1 Immature Gran % (Auto) 0.2 Neut % (Auto) 44.7 Lymph % (Auto) 42.9 [place] % (Auto) 9.2 Eos % (Auto) 2.2 Baso % (Auto) 0.8 Neut # (Auto) 2.28 Lymph # (Auto) 2.19 [place] # (Auto) 0.47 Eos # (Auto) 0.11 Baso # (Auto) 0.04 Immature Gran # (Auto) 0.01 D-Dimer Cancelled Sodium 138 Potassium 4.2 Chloride 107 Carbon Dioxide 26 Anion Gap 5 BUN 12 Creatinine 0.61 Est Cr Clr Drug Dosing 109.4 eGFR 131.18 BUN/Creatinine Ratio 19.7 Glucose 75 Calcium 9.3 Total Bilirubin 0.2 AST 18 ALT 10 Alkaline Phosphatase 40 Total Protein 7.1 Albumin 4.2 Globulin 2.9 Albumin/Globulin Ratio 1.4 HCG, Qual Negative Urine Color Yellow Urine Appearance Clear Urine pH 6.5 Ur Specific [place] 1.022 Urine Protein Negative Urine Glucose (UA) Negative Urine Ketones Negative Urine Blood 2+ H Urine Nitrite Negative Urine Bilirubin Negative Urine Urobilinogen Negative Ur Leukocyte Esterase 1+ H Urine WBC (Auto) 0-5 Urine RBC (Auto) 3-5 H U Hyaline Cast (Auto) 0-2 U Epithel Cells (Auto) 3-5 H Urine Bacteria (Auto) None Seen Urine Comment EBV Capsid Ag IgG Ab Positive EBV Caps Ag IgG Sig Str 37.7 EBV Capsid Ag IgM Ab Negative EBV Caps Ag IgM Sig Str < 10.0 EBV Nuclear Antigen Ab Negative EBV Nucl Ag IgG Sig Str 6.3 EBV Interpretation See Comment 12/01/24 12/02/24 17:49 06:08 WBC 6.87 RBC 3.88 L Hgb 11.7 L Hct 34.6 L MCV 89.2 MCH 30.2 MCHC 33.8 RDW Std Deviation 37.8 RDW Coeff of Efren 11.8 Plt Count 282 MPV 10.1 Immature Gran % (Auto) Neut % (Auto) Lymph % (Auto) [place] % (Auto) Eos % (Auto) Baso % (Auto) Neut # (Auto) Lymph # (Auto) [place] # (Auto) Eos # (Auto) Baso # (Auto) Immature Gran # (Auto) D-Dimer 1150 H* Sodium 135 L Potassium 3.9 Chloride 106 Carbon Dioxide 22 Anion Gap 7 BUN 13 Creatinine 0.59 L Est Cr Clr Drug Dosing 131.3 eGFR 132.23 BUN/Creatinine Ratio 22.0 H Glucose 124 H Calcium 9.1 Total Bilirubin AST ALT Alkaline Phosphatase Total Protein Albumin Globulin Albumin/Globulin Ratio HCG, Qual Urine Color Urine Appearance Urine pH Ur Specific [place] Urine Protein Urine Glucose (UA) Urine Ketones Urine Blood Urine Nitrite Urine Bilirubin Urine Urobilinogen Ur Leukocyte Esterase Urine WBC (Auto) Urine RBC (Auto) U Hyaline Cast (Auto) U Epithel Cells (Auto) Urine Bacteria (Auto) Urine Comment EBV Capsid Ag IgG Ab EBV Caps Ag IgG Sig Str EBV Capsid Ag IgM Ab EBV Caps Ag IgM Sig Str EBV Nuclear Antigen Ab EBV Nucl Ag IgG Sig Str EBV Interpretation Diagnostic Findings CT negative for any pulmonary embolism. Uterus and ovary wnl. Dopplers negative for DVT
[2024-12-02] MEDS: MELATONIN 3 MG TAB PO PRN (22:47)
[2024-12-02] MEDS: ACETAMINOPHEN 500 MG TAB PO PRN (22:47)
[2024-12-03 07:45] VITALS: BP 101/64; PULSE 74; RESP 16; TEMP 99
--- NOTE | 2024-12-03 12:51 | Discharge Summary ---
Discharge Summary Date of Service December 03, 2024 Principal Dx & Hospital Course #1 = Principal Diagnosis (1) Intractable back pain: (2) Urinary tract infection: (3) Elevated d-dimer: Keri Mcdonald is a 19 year old female observed at [facility] from December 01 to 2024 due to back pain and abnormal uterine bleeding. Urine tract infection was ruled out as only lactobacillus growing in culture. B ack pain most consistent with thoracic muscle spasm with excellent relief with diazepam 2mg PO overnight. She will be prescribed Flexeril to use as needed on discharge. Suspect her muscle spasms may be related to abnormal uterine bleeding as this is the first time you have gone through the three month cycle. She was seen by gynecology and recommended staying on your current schedule of control and following up as an outpatient. Recommended conservative measures such as yoga for stretching, acupuncture, massage, heating pads for her back. For pain continue with acetaminophen 1st line and ibuprofen 2nd line for pain as needed. Notes For Next Care Provider Follow up with APPLICATION DESIGNER or family physician regarding control Follow up primary care physician for back pain There were non-specific findings on CT that should be followed up: CT abdomen/pelvis showed "mild periportal edema within the liver. This is nonspecific in nature but could be due to hepatitis or overhydration" and "mild hepatomegaly". EBV testing indicates previous infection but the time since primary infection cannot be determined and if not improving consider repeating this in 2-3 weeks however I have low suspicion this is causing her symptoms as CBC, LFTs normal and there is no specific treatment for this. CMV testing is still pending on discharge. If she is not improving consider hepatitis, HIV testing and follow up liver ultrasound. 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 She immediately felt nauseous and "spaced out". Her mother is in the room and helps to provide history. States that her daughter called her almost immediately via FaceTime and that she knew that the patient had been in significant pain because she appeared pale. The patient states that she just felt disoriented when this occurred. She did go to her class but the pain continued. She was seen in the ED on 11/25/2024 for this pain, ultimately being diagnosed with a UTI and sent home on oral cefdinir. Her pelvic, renal, and transvaginal ultrasound at that time only revealed mild free fluid in the pelvis that was nonspecific. She followed up with urology who received a new urine sample and adjusted her antibiotics to Bactrim, recommending CT of the abdomen and pelvis. She picked up the Bactrim the day of arrival but has been unable to yet start this antibiotic. Given the ongoing and worsening pain, as well as being unable to have an outpatient CT scheduled for the next few weeks, the patient came to the ED for evaluation. She states that the pain, at its worst, is at present and is rated a 8-9/10 on the pain scale. It is a sharp and achy pain. Initially, the pain was on the R side, below the base of the scapula with some radiation to her flank. However, on the day of arrival, the pain seemed to have radiated to the center of her back, and more localized to the L side. She still has R sided discomfort, but it is more so on the L side now. She states she has also had abdominal cramping that feels like menstrual cramps. She is on OCP, reporting that her period is due in the middle of December but she has been spotting since ~ 6 days HOT MILL WORKER. She notes that her discomfort is worse with walking. She denies injury, falls, or any factors that may have triggered worsening pain. She has been utilizing IBU and acetaminophen around the clock with minimal pain relief. Also using heating pad. Reports that she has noticed she is more aware of odors, and it has caused her to gag. Some constipation at baseline. Denies vaginal odor, discharge, or pain with intercourse. At present, her pain is just below her scapula, in the center of her back with more emphasis on the L side. She does notice blood in her urine. Did have a limited episode of SOB the day of arrival. Denies CP, palpitations, vomiting/diarrhea, F/C, URI symptoms, numbness/tingling, weakness, syncope, or falls. ED evaluation reveals CBC without leukocytosis or leukopenia, H/H 11.6/33.8; Ddimer 1150; CMP unremarkable; negative; UA still indicative of infection; CTAP no appendicitis or nephrolithiasis, mild periportal edema within the liver (hepatitis vs overhydration), mild hepatomegaly, small L renal cyst, constipation, minimal free pelvic fluid; chest CTA no evidence for PE.; Provided with 1L NSS, Ketorolac 15mg IV x 2, Dexamethasone 10mg IV, and Acetaminophen 1g IV in ED. Please see Dr. Sanchez's attestation for adjustments/additions to treatment plan. Discharge Exam Constitutional WD/WN, vitals as above Respiratory normal respiratory effort, lungs clear to auscultation Cardiovascular RRR, no murmur, no edema Gastrointestinal (Abdomen) normal bowel sounds, soft, nontender, no hepatosplenomegaly Skin no rashes, warm and dry Genitourinary no CVA tenderness Discharge Plan Discharge Items Patient Disposition: Home - Self-Care Reason For Visit: INTRACTABLE BACK PAIN, MIDLINE TENDERNESS,DDIMER Discharge Diagnosis: Thoracic paraspinal muscle spasm Activity: As commented below Lifting: No more than 5 pounds Bathing: No limitations Exercise/Sports: Wait until after follow-up appointment Driving/Machine Use: no driving while taking Flexeril Non-emergency contact: Primary Care Provider Call non-emergency contact if: you have any medication questions and your symptoms worsen Follow-up/Referrals: [facility] [Primary Care Provider] - (FOLLOW UP WITH [facility] IN 7-10 DAYS.) Diet: Regular Addtl Attending Provider Instructions: You were observed at [facility] from December 01 to 2024 due to back pain and abnormal uterine bleeding. Urine tract infection effectively ruled out at this stage with lack of symptoms and of any lact obacillus growing in urine culture which is consider normal vikas and not a pathogen. You were seen by gynecology and recommended staying on your current schedule of control and following up as an outpatient. 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 Recommend conservative measures such as yoga for stretching, acupuncture, massage, heating pads for your back. For pain continue with acetaminophen 1st line and ibuprofen 2nd line for pain as needed. Please follow up with your family physician for ongoing recommendations for this. There were non-specific findings on your imaging that you should follow up with your family physician. CT abdomen/pelvis showed "mild periportal edema within the liver. This is nonspecific in nature but could be due to hepatitis or overhydration" and "mild hepatomegaly" (enlarged liver). EBV testing indicates previous infection but the time since primary infection cannot be determined and if not improving consider repeating this in 2-3 weeks however I have low suspicion this is causing your symptoms as, complete blood count, liver function tests are normal and there is no specific treatment for this. CMV testing is still pending on discharge. If you are not improving consider hepatitis, HIV testing and follow up liver ultrasound with your family physician but I have a low suspicion this is causing your symptoms. Pending Studies at Discharge: No Stand-Alone Forms: My [facility] [employer], Work/School Release, Smoking Cessation Medications and DC Order Prescriptions: New cyclobenzaprine 5 mg tablet 5 mg PO TID PRN (Reason: muscle spasm) Qty: 30 0RF Continued fluoxetine [Prozac] 20 mg capsule 20 mg PO DAILY fluoxetine [Prozac] 10 mg capsule 10 mg PO DAILY levonorgestrel-ethinyl estrad 0.15 mg-30 mcg (91) tablets,dose pack,3 month See Rx Instructions PO .COMPLEX Rx Instructions: take 1 tablet daily following the order on blister card(s) PO Discontinued sulfamethoxazole-trimethoprim [Bactrim DS] 800-160 mg tablet 1 tab PO BID 7 Days Qty: 14 0RF Patient Comments: HAS NOT STARTED MEDICATION YET Discharge Orders: Discharge Order (Routine); Ordered 12/03/24 Ordered By: Сергей Hood/Other Patient Handouts: Cyclobenzaprine Oral Tablet, ED Back Spasm, No Trauma Admission Data Admit Date/Time: 12/01/24 20:55 Attending Provider: Сергей Monterroso Admit Provider: Lindsay Sanchez Primary Care Provider: [facility] Other Providers: Lindsay Sanchez; Erik Clarke Other Interventions: Discharge Summary Assessment (RN) Last Done: 12/03/24 10:55 Hospital Stay Data Consultations 12/01/24 20:10 ED Decision to Admit Stat 12/02/24 14:29 Consult Gynecology Routine Diagnostic Imagining Performed 12/01/24 14:59 CT Abd and Pelvis [CT abd pelvis IV con only] Stat Impression: 1. No sign of appendicitis or nephrolithiasis 2. Mild periportal edema within the liver. This is nonspecific in nature but could be due to hepatitis or overhydration 3. Mild hepatomegaly 4. Small left renal cyst 5. Constipation 6. Minimal amount of free pelvic fluid, which may be physiologic 12/01/24 18:41 CT angio chest PE protocol Stat IMPRESSION: No evidence for pulmonary embolism. 12/01/24 20:48 CT lumbar spine w con Stat IMPRESSION: No evidence of acute lumbar spine pathology. CT thoracic spine w con Stat IMPRESSION: No evidence of acute thoracic spine pathology. 12/01/24 20:50 US venous doppler LE BI Stat IMPRESSION: No DVT within the bilateral lower extremities. Pending Results Patient Have Any Pending Studies at Discharge: Yes (CMV results) Discharge Instructions Given to Patient (Per Discharging Provider) You were observed at [facility] from December 01 to 2024 due to back pain and abnormal uterine bleeding. Urine tract infection effectively ruled out at this stage with lack of symptoms and of any lactobacillus growing in urine culture which is consider normal vikas and not a pathogen. You were seen by gynecology and recommended staying on your current schedule of control and following up as an outpatient. You were diagnosed with thoracic paraspinal muscle spasm which improved with diazepam as an inpatient and we will prescribe Flexeril as needed on discharge but this should not be a [facility] solution. Recommend conservative measures such as yoga for stretching, acupuncture, massage, heating pads for your back. For pain continue with acetaminophen 1st line and ibuprofen 2nd line for pain as needed. Please follow up with your family physician for ongoing recommendations for this. There were non-specific findings on your imaging that you should follow up with your family physician. CT abdomen/pelvis showed "mild periportal edema within the liver. This is nonspecific in nature but could be due to hepatitis or overhydration" and "mild hepatomegaly" (enlarged liver). EBV testing indicates previous infection but the time since primary infection cannot be determined and if not improving consider repeating this in 2-3 weeks however I have low suspicion this is causing your symptoms as, complete blood count, liver function tests are normal and there is no specific treatment for this. CMV testing is still pending on discharge. If you are not improving consider hepatitis, HIV testing and follow up liver ultrasound with your family physician but I have a low suspicion this is causing your symptoms. Total Time Total Time Spent Total Time Spent (In Minutes): 40 Coding Level of Care Code 50437 INP/OBS DISCH >30 MIN Diagnoses Intractable back pain M54.9 Urinary tract infection N39.0; R31.9 Hematuria presence: with hematuria Urinary tract infection type: site unspecified Elevated d-dimer R79.89
== END 2024-12-03 13:26 | disposition home or self-care (01) ==
LOC: 3E 14:38 → ED 14:38 → SUATTDRO 20:55 → 3E 21:40